=== PATIENT | male | born 1975 | race Caucasian/White ===

== ENCOUNTER 2016-04-17 17:09 | Emergency (ER) | payer MEDICAID ==
[~2016-04-17] VITALS: Ht 175.3 cm; Wt 170.0 kg
[~2016-04-17 17:09] MED LIST: CLON1 PO; DEPA250T2 PO; DEPA500T PO; ESCI10TA PO; GABA100C4 PO; GLIM1 PO; MELO15 PO; METF500 PO; PRIN20TA2 PO; PROP1TAB66 PO; TRAM50TA PO
[2016-04-17 17:10] VITALS: BP 151/91; PULSE 98; RESP 20; TEMP 97.9; O2SAT 95
[2016-04-17] MEDS ORDERED: LISI-515 PO (19:59)
--- NOTE | 2016-04-17 20:02 | PD ---
HPI Chief Complaint: Medication Refill Request Time Seen by Provider: 19:59 Travel History International Travel<30 days: No Contact w/Intl Traveler<30days: No Traveled to known affect area: No History of Present Illness HPI 41-year-old white male presents to emergency department requesting a medication refill of his lisinopril 20 mg daily. He states that he was just excepted as a patient into the patient assistance clinic. The patient states that he does not have his first appointment with Dr. Mcbride until the end of the month. He just ran out his medicine today. He denies any active medical complaints at this time. PFS Past Medical History ADD: Yes ADHD: Yes Arthritis: Yes (KNEES LOWER BACK) Autoimmune Disease: No Bipolar Disorder: Yes Anxiety: Yes Depression: Yes Cancer: No Cardiovascular Problems: Yes High Cholesterol: Yes Diabetes: Yes Diminished Hearing: No Endocrine: Yes Genitourinary: No Hypertension: Yes Immune Disorder: No Musculoskeletal: Yes Neurologic: Yes (IN COMA SEVERAL WEEKS AGE 17 ) Psychiatric: Yes Reproductive: No Respiratory: No Past Surgical History Abdominal Surgery: No Genitourinary Surgery: Yes (VASECTOMY 2001) Hysterectomy: Yes (HTN) Oral Surgery: Yes (WISDOM TEETH EXTRACTED) Other Surgery: Yes (HERNIA SMALL CHILD) Social History Alcohol Use: No Tobacco Use: No Substance Use: No Allergies-Medications (Allergen,Severity, Reaction): Coded Allergies: Adderall (Verified Allergy, Severe, Rash, 06/14/15) Lamotrigine (Verified Allergy, Mild, RASH, 06/14/15) Reported Meds & Prescriptions Reported Meds & Active Scripts Active Inderal (Propranolol HCl) 10 Mg Tab 10 Mg PO TID 30 Days Glucophage 500 mg (Metformin HCl) 500 Mg Tab 500 Mg PO BIDPC 30 Days Amaryl (Glimepiride) 1 Mg Tab 1 Mg PO DAILYAC 30 Days Reported Depakote 500 mg (Divalproex Sodium) 500 Mg Tab 1 Tab PO DAILY Depakote 250 mg (Divalproex Sodium) 250 Mg Tab 1 Tab PO BID Prinivil (Lisinopril) 20 Mg Tab 20 Mg PO DAILY Escitalopram Oxalate 10 Mg Tab 10 Mg PO DAILY Gabapentin Unknown Strength Cap Unknown Dose PO TID Klonopin (Clonazepam) 1 Mg Tab 1 Mg PO TID Mobic 15 Mg Tab (Meloxicam) 15 Mg Tab 15 Mg PO DAILY PRN Tramadol Hcl (Tramadol HCl) 50 Mg Tab 50 Mg PO TID PRN Review of Systems Except as stated in HPI: all other systems reviewed are Neg Physical Exam Narrative GENERAL: This is a morbidly obese, well-developed patient, in no apparent distress. SKIN: No rashes, ecchymoses or lesions. Warm and dry. HEAD: Atraumatic. Normocephalic. EYES: PERRL, EOMI, no discharge or injection. No scleral icterus. EARS: Clear NOSE: Nasal turbinates appear normal. THROAT: Mucosa pink and moist. Airway patent. NECK: Trachea midline. supple, moves head freely. LUNGS: Clear to auscultation. CV: Regular in rhythm. ABDOMEN: Soft nontender. EXT: No clubbing cyanosis or edema. Data Data Last Documented VS Vital Signs Date Time Temp Pulse Resp B/P Pulse Ox O2 Delivery O2 Flow Rate FiO2 04/17/16 17:10 97.9 98 20 151/91 95 Room Air MDM Medical Decision Making Medical Screen Exam Complete: Yes Emergency Medical Condition: Yes Medical Record Reviewed: Yes Differential Diagnosis Differential diagnoses: Hypertension, medication refill, drug-seeking Narrative Course This is hypertension, med refill Diagnosis Primary Impression: Hypertension Qualified Code: I10 - Essential hypertension Additional Impression: Medication refill Patient Instructions: General Instructions Additional Instructions: Rest. Follow-up with Dr. Mcbride in the clinic as scheduled. Return to the ER for emergencies Med/Other Pt SpecificInfo: Prescription(s) given Scripts Lisinopril 20 Mg Tab20 Mg PO DAILY #30 TAB Ref 0 Prov:Nuzhat Saxena MD 04/17/16 Disposition: 01 DISCHARGE HOME Condition: Stable Larry Casper Apr 17, 2016 20:02
[2016-05-02] MEDS ORDERED: QUET1TAB9 PO (15:20)
[2016-05-02] MEDS ORDERED: PROP10TA6 PO (15:20)
[2016-05-02] MEDS ORDERED: CLON1TAB PO (15:20)
[2016-05-02] MEDS ORDERED: METF500T PO ×2 (15:20→15:47)
[2016-05-02] MEDS ORDERED: GABA600T PO (15:20)
[2016-05-02] MEDS ORDERED: LISI-515 PO (15:47)
[2016-05-07] MEDS ORDERED: GLIP10TA6 PO (16:37)
[2016-05-07] MEDS ORDERED: GEMF600T PO (16:37)
[2016-05-10] MEDS ORDERED: METF500T PO (15:59)
[2016-05-10] MEDS ORDERED: LEVEMIR SQ (15:59)
[2016-05-10] MEDS ORDERED: BAYEMIS (15:59)
[2016-05-10] MEDS ORDERED: INSU-174 (15:59)
[2016-05-10] MEDS ORDERED: GLUCTES27 (15:59)
[2016-05-10] MEDS ORDERED: HYDR25TA5 PO (16:01)
[2016-05-21] MEDS ORDERED: METF500T PO (15:35)
[2016-05-21] MEDS ORDERED: ONETTES4 (15:43)
[2016-05-21] MEDS ORDERED: ONETKIT (15:43)
[2016-05-21] MEDS ORDERED: ONETMIS2 (15:43)
[2016-05-21] MEDS ORDERED: HYDR25TA5 PO ×2 (15:45→17:09)
[2016-05-31] MEDS ORDERED: GLIP10TA6 PO (16:26)
[2016-05-31] MEDS ORDERED: GEMF600T PO (16:27)
[2016-06-11] MEDS ORDERED: METF500T PO (11:24)
[2016-06-25] MEDS ORDERED: PROP10TA6 PO (15:57)
[2016-06-25] MEDS ORDERED: LEVEMIR SQ (15:57)
[2016-06-25] MEDS ORDERED: HYDR50TA94 PO (15:58)
[2016-06-26] MEDS ORDERED: INSU-174 (16:10)
[2016-07-02] MEDS ORDERED: GLIP10TA6 PO (07:45)
[2016-07-02] MEDS ORDERED: GEMF600T PO (07:45)
[2016-07-30] MEDS ORDERED: PARO10TA2 PO (15:16)
[2016-07-30] MEDS ORDERED: LEVEMIR SQ (15:30)
== END 2016-04-17 20:46 | disposition home or self-care (01) ==
LOC: NEPB 17:09
DX: I10 Essential (primary) hypertension (principal); E11.9 Type 2 diabetes mellitus without complications; E78.00 Pure hypercholesterolemia, unspecified; Z76.0 Encounter for issue of repeat prescription; Z79.84 Long term (current) use of oral hypoglycemic drugs; Z86.59 Personal history of other mental and behavioral disorders; Z87.39 Personal history of other diseases of the musculoskeletal system and connective tissue; Z86.79 Personal history of other diseases of the circulatory system; Z86.69 Personal history of other diseases of the nervous system and sense organs
CPT/HCPCS: 99281

== ENCOUNTER 2017-10-21 08:21 | Observation (INO) ==
[2017-10-21] MEDS ORDERED: Aspirin 325 MG Tablet PO ONE (09:28)
--- NOTE | 2017-10-21 10:04 | XR ---
EXAM DATE: 10/21/2017 9:56 AM EDT AGE/SEX: 42 years / Male INDICATIONS: Left chest pain and short of breath. CLINICAL DATA: This is the patient's initial encounter. Patient reports that signs and symptoms have been present for 1 week and indicates a pain score of 6/10. MEDICAL/SURGICAL HISTORY: None. None. COMPARISON: [facility] [place], 09/07/[place]. . FINDINGS: A single AP view of the chest demonstrates minimal linear density left lower lobe. Right lung clear. The cardiomediastinal contours are unremarkable. Osseous structures are intact. CONCLUSION: 1. Left basilar density could be subsegmental atelectasis or scarring. 2. Right lung is clear. Electronically signed by: Solis Newman MD 10/21/2017 10:03 AM EDT
[2017-10-21 10:34] LABS: Baso # (Auto) 0.2 th/mm3 (0.0-0.2); Baso % (Auto) 1.3 % (0.0-2.0); Eos # (Auto) 0.5 th/mm3 (0.0-0.4); Eos % (Auto) 3.3 % (0.0-4.0); Hematocrit 35.7 % (39.0-51.0); Lymph # (Auto) 4.1 th/mm3 (1.0-4.8); Lymph % (Auto) 29.8 % (9.0-44.0); Mean Corpuscular HGB Conc 33.7 % (32.0-36.0); Mean Corpuscular Hemoglobin 26.7 pg (27.0-34.0); Mean Corpuscular Volume 79.3 fL (80.0-100.0); Mean Platelet Volume 7.2 fL (7.0-11.0); Mono # (Auto) 0.8 th/mm3 (0.0-0.9); Mono % (Auto) 5.7 % (0.0-8.0); Neut # (Auto) 8.2 th/mm3 (1.8-7.7); Neut % (Auto) 59.9 % (16.0-70.0); Platelet Count 389 th/mm3 (150-450); Red Blood Count 4.51 mil/mm3 (4.50-5.90); Red Cell Distribution Width 13.9 % (11.6-17.2); White Blood Count 13.7 th/mm3 (4.0-11.0)
[2017-10-21 10:46] LABS: Activated Partial Thrombo Time 27.7 sec (24.3-30.1); Prothrombin Time 10.4 sec (9.8-11.6)
[2017-10-21 10:56] LABS: Albumin 3.4 g/dL (3.4-5.0); Anion Gap 13 meq/L (5-15); Aspartate Aminotransferase 10 U/L (15-37); Blood Urea Nitrogen 21 mg/dL (7-18); Calcium 8.9 mg/dL (8.5-10.1); Carbon Dioxide 24.4 meq/L (21.0-32.0); Chloride 104 meq/L (98-107); Glomerular Filtration Rate Greater Than 89 mL/min (>89); Glucose,Random 269 mg/dL (74-106); Potassium 4.1 meq/L (3.5-5.1); Sodium 141 meq/L (136-145)
[2017-10-21 11:01] LABS: Alanine Aminotransferase 35 U/L (12-78); Alkaline Phosphatase 152 U/L (45-117); Total Protein 7.6 g/dL (6.4-8.2)
[2017-10-21 11:02] LABS: Creatine Kinase 38 U/L (39-308)
--- NOTE | 2017-10-21 11:37 | CT ---
EXAM DATE: 10/21/2017 11:31 AM EDT AGE/SEX: 42 years / Male INDICATIONS: Left chest pain for 1 week CLINICAL DATA: This is the patient's initial encounter. Patient reports that signs and symptoms have been present for 1 week and indicates a pain score of 6/10. MEDICAL/SURGICAL HISTORY: Diabetes. Hypertension. Anxiety, panic attacks None. RADIATION DOSE: 11.01 CTDI (mGy) COMPARISON: No prior exams available for comparison. TECHNIQUE: Volumetric scanning was performed using a multi-row detector CT scanner during bolus infu bud of 75 ml Omnipaque 350 (iohexol) nonionic water-soluble contrast as a single exam dose. The keny a was post processed with a variety of visualization algorithms including full volume maximum intensi ty projection and sliding thin slab reformation. Using automated exposure control and adjustment of t he mA and/or kV according to patient size, radiation dose was kept as low as reasonably achievable to obtain optimal diagnostic quality images. DICOM format image data is available electronically for r eview and comparison. FINDINGS: Pulmonary Arteries: There is some limited opacification of the pulmonary vessels. However, no filling defects are seen in the main pulmonary arteries.. The left and right pulmonary arteries are normal in diameter. Lung: No infiltrates seen. Effusion: None. Mediastinum: No evidence of mediastinal or hilar adenopathy. Other: The axilla is unremarkable. CONCLUSION: 1. Limited opacification of the pulmonary arteries. However, no definite filling defects are seen in the main pulmonary arteries. 2. No acute pulmonary infiltrates. Electronically signed by: Rogelio Gamez MD 10/21/2017 11:35 AM EDT
--- NOTE | 2017-10-21 12:29 | ED ---
HPI General Chief Complaint: Chest Pain Stated Complaint: Chest Pains Time Seen by Provider: 10/21/17 08:56 Source: patient Mode of arrival: ambulatory Limitations: no limitations History of Present Illness HPI narrative: Patient is a 42-year-old male with history of anxiety, bipolar disorder, and diabetes, presents to the emergency room with complaints of chest pain. Patient reports that he has been having intermittent chest pain for the past few days. Patient reports that chest pain comes on at rest while he is sitting at his computer. Reports shortness of breath along with nausea and no vomiting with this chest pain. Patient denies any diaphoresis with the symptoms. Patient reports that the chest pain feels like a "bad headache in my chest" as well as a "dull ache" as well as a "sharp and stabbing sensation". Patient reports the chest pain does radiate from his left chest and his left arm. Reports that he has been noticing increased dyspnea on exertion which is new for him. 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 No early family history of CAD - does report history of "alot of CVA's in the past." Patient currently with no chest pain at this time. Complete Quality Measures for STEMI Alert Patients Related Data Home Medications Medication Instructions Recorded Confirmed gabapentin 200 mg PO TID 10/21/17 10/21/17 insulin aspart U-100 [Novolog See Label Instructions .ROUTE 10/21/17 Flexpen U-100 Insulin] .COMPLEX insulin detemir U-100 [Levemir 65 unit SUB-Q HS 10/21/17 10/21/17 FlexTouch U-100 Insuln] insulin detemir U-100 [Levemir 70 unit SUB-Q DAILY 10/21/17 10/21/17 FlexTouch U-100 Insuln] lisinopril 20 mg PO DAILY 10/21/17 10/21/17 metformin 1,000 mg PO BID 10/21/17 10/21/17 quetiapine [Seroquel] 100 mg PO BID 10/21/17 10/21/17 quetiapine [Seroquel] 200 mg PO HS 10/21/17 10/21/17 Allergies Allergy/AdvReac Type Severity Reaction Status Date / Time amphetamine Allergy Severe Rash Unverified 10/21/17 08:52 dextroamphetamine Allergy Severe Rash Unverified 10/21/17 08:52 lamotrigine Allergy Mild RASH Verified 10/21/17 08:52 Review of Systems ROS: all other systems reviewed are negative [facility] Medical History Medical History Anxiety (Acute) Bipolar 1 disorder (Acute) Diabetes (Acute) H/O tooth extraction (Acute) Hypertension (Acute) Neuropathy (Acute) Panic attacks (Acute) Social History Social History Substance History: No History of Abuse Smoking Status: Former smoker How Often Do You Have a Drink Containing Alcohol: Never Immunization History Tetanus Immunization: Unsure Exam Narrative Exam Narrative: GENERAL: mild distress SKIN: Focused skin assessment warm/dry. HEAD: Atraumatic. Normocephalic. EYES: Pupils equal and round. No scleral icterus. No injection or drainage. ENT: No nasal bleeding or discharge. Mucous membranes pink and moist. NECK: Trachea midline. No JVD. CARDIOVASCULAR: Regular rate and rhythm. No murmur appreciated. RESPIRATORY: No accessory muscle use. Clear to auscultation. Breath sounds equal bilaterally. GASTROINTESTINAL: Abdomen soft, non-tender, nondistended. Hepatic and splenic margins not palpable. MUSCULOSKELETAL: No obvious deformities. No clubbing. No cyanosis. No edema. NEUROLOGICAL: Awake and alert. No obvious cranial nerve deficits. Motor grossly within normal limits. Normal speech. PSYCHIATRIC: Appropriate mood and affect; insight and judgment normal. Course Initial Documented Vital Signs Temperature 97.7 F 10/21/17 08:27 Pulse Rate 95 H 10/21/17 08:27 Respiratory Rate 20 10/21/17 08:27 Blood Pressure 152/90 H 10/21/17 08:27 Pulse Oximetry 94 L 10/21/17 08:27 Last Documented Vital Signs Temperature 97.7 F 10/21/17 08:27 Pulse Rate 87 10/21/17 09:40 Respiratory Rate 16 10/21/17 09:40 Blood Pressure 151/67 H 10/21/17 09:40 Pulse Oximetry 97 10/21/17 09:40 Medical Decision Making MDM Narrative Medical decision making narrative: During the course of the patients emergency department visit, the patients history, examination, and differential diagnosis were reviewed with the patient. The patient was placed on a nuclear monitoring technician with oximetry and frequent blood pressure monitoring. The patient had an IV access obtained and blood work sent for analysis. The patient was initially provided ASA 325mg. He currently is chest pain free The patients laboratory studies were reviewed and remarkable for trop less than 0.02. His blood sugar is 269 - SQ insulin was ordered for him. he is a known diabetic. CTA neg for PE Patient will be admitted to chest pain unit for serial trops and for cardiac obs Medical Screen Exam Complete: Yes Emergency Medical Condition: Yes Differential Diagnosis Differential Diagnosis: ACS, arrhythmia, PE, DVT, pneumothorax, pneumonia Medical Records Medical records reviewed: Yes I reviewed the patient's medical records. Lab Data Lab results reviewed: Yes I reviewed the patient's lab results. Result diagrams: 10/21/17 09:45 10/21/17 09:45 Lab Results 10/21/17 10/21/17 10/21/17 Range/Units 09:45 09:45 09:45 WBC 13.7 H (4.0-11.0) th/mm3 RBC 4.51 (4.50-5.90) mil/mm3 Hgb 12.0 L (13.0-17.0) gm/dL Hct 35.7 L (39.0-51.0) % MCV 79.3 L (80.0-100.0) fL MCH 26.7 L (27.0-34.0) pg MCHC 33.7 (32.0-36.0) % RDW 13.9 (11.6-17.2) % Plt Count 389 (150-450) th/mm3 MPV 7.2 (7.0-11.0) fL Neut % (Auto) 59.9 (16.0-70.0) % Lymph % (Auto) 29.8 (9.0-44.0) % [place] % (Auto) 5.7 (0.0-8.0) % Eos % (Auto) 3.3 (0.0-4.0) % Baso % (Auto) 1.3 (0.0-2.0) % Neut # (Auto) 8.2 H (1.8-7.7) th/mm3 Lymph # (Auto) 4.1 (1.0-4.8) th/mm3 [place] # (Auto) 0.8 (0.0-0.9) th/mm3 Eos # (Auto) 0.5 H (0.0-0.4) th/mm3 Baso # (Auto) 0.2 (0.0-0.2) th/mm3 WBC Differential . Differential Comment Auto diff final PT 10.4 (9.8-11.6) sec INR 1.0 Ratio APTT 27.7 (24.3-30.1) sec Sodium 141 (136-145) meq/L Potassium 4.1 (3.5-5.1) meq/L Chloride 104 (98-107) meq/L Carbon Dioxide 24.4 (21.0-32.0) meq/L Anion Gap 13 (5-15) meq/L BUN 21 H (7-18) mg/dL Creatinine 0.93 (0.60-1.30) mg/dL Estimated GFR Greater than 89 (>89) mL/min Random Glucose 269 H (74-106) mg/dL Calcium 8.9 (8.5-10.1) mg/dL Total Bilirubin 0.2 (0.2-1.0) mg/dL AST 10 L (15-37) U/L ALT 35 (12-78) U/L Alkaline Phosphatase 152 H (45-117) U/L Total Creatine Kinase 38 L (39-308) U/L Troponin I Less than 0.02 L (0.02-0.05) ng/mL B-Natriuretic Peptide (0-100) pg/mL Total Protein 7.6 (6.4-8.2) g/dL Albumin 3.4 (3.4-5.0) g/dL 10/21/17 Range/Units 09:45 WBC (4.0-11.0) th/mm3 RBC (4.50-5.90) mil/mm3 Hgb (13.0-17.0) gm/dL Hct (39.0-51.0) % MCV (80.0-100.0) fL MCH (27.0-34.0) pg MCHC (32.0-36.0) % RDW (11.6-17.2) % Plt Count (150-450) th/mm3 MPV (7.0-11.0) fL Neut % (Auto) (16.0-70.0) % Lymph % (Auto) (9.0-44.0) % [place] % (Auto) (0.0-8.0) % Eos % (Auto) (0.0-4.0) % Baso % (Auto) (0.0-2.0) % Neut # (Auto) (1.8-7.7) th/mm3 Lymph # (Auto) (1.0-4.8) th/mm3 [place] # (Auto) (0.0-0.9) th/mm3 Eos # (Auto) (0.0-0.4) th/mm3 Baso # (Auto) (0.0-0.2) th/mm3 WBC Differential Differential Comment PT (9.8-11.6) sec INR Ratio APTT (24.3-30.1) sec Sodium (136-145) meq/L Potassium (3.5-5.1) meq/L Chloride (98-107) meq/L Carbon Dioxide (21.0-32.0) meq/L Anion Gap (5-15) meq/L BUN (7-18) mg/dL Creatinine (0.60-1.30) mg/dL Estimated GFR (>89) mL/min Random Glucose (74-106) mg/dL Calcium (8.5-10.1) mg/dL Total Bilirubin (0.2-1.0) mg/dL AST (15-37) U/L ALT (12-78) U/L Alkaline Phosphatase (45-117) U/L Total Creatine Kinase (39-308) U/L Troponin I (0.02-0.05) ng/mL B-Natriuretic Peptide 14 (0-100) pg/mL Total Protein (6.4-8.2) g/dL Albumin (3.4-5.0) g/dL Imaging Data Attestation: I personally reviewed and interpreted this imaging study as follows : Radiologist's impression: Chest X-Ray 10/21/17 08:58 CONCLUSION: 1. Left basilar density could be subsegmental atelectasis or scarring. 2. Right lung is clear. Chest CTA 10/21/17 09:28 CONCLUSION: 1. Limited opacification of the pulmonary arteries. However, no definite filling defects are seen in the main pulmonary arteries. 2. No acute pulmonary infiltrates. ECG Data EKG Prior to Arrival: No Attestation: I personally reviewed and interpreted this ECG as follows: Interpretation: EKG at 0849: NSR at 89bpm, qt/qtc: 351/398, no acute st or t wave changes Discharge Plan Discharge Disposition Patient Disposition: 30 Still Patient Discharge Condition Condition: Stable Discharge Details Diagnosis: Chest pain Physicians Team ED Provider: Alma Dawkins Primary Care Provider: UNKNOWN, Rxs /Orders / Referrals /Forms Prescriptions: No Action metformin 1,000 mg Tablet 1,000 mg PO BID RF: 0 insulin detemir U-100 [Levemir FlexTouch U-100 Insuln] 100 unit/mL (3 mL) Insulin Pen 70 unit SUB-Q DAILY RF: 0 insulin detemir U-100 [Levemir FlexTouch U-100 Insuln] 100 unit/mL (3 mL) Insulin Pen 65 unit SUB-Q HS RF: 0 lisinopril 20 mg Tablet 20 mg PO DAILY RF: 0 quetiapine [Seroquel] 200 mg Tablet 200 mg PO HS RF: 0 quetiapine [Seroquel] 100 mg Tablet 100 mg PO BID RF: 0 insulin aspart U-100 [Novolog Flexpen U-100 Insulin] 100 unit/mL Insulin Pen See Label Instructions .ROUTE .COMPLEX RF: 0 gabapentin 100 mg Capsule 200 mg PO TID RF: 0 Discharge Instructions Patient Printed Instructions: Chest Pain (ED) Discharge Interventions Interventions: Vital Signs Last Done: 10/21/17 09:40 Status ED Status: With Doctor
[2017-10-21] MEDS ORDERED: Acetaminophen 500 MG Tablet PO PRN (12:58)
--- NOTE | 2017-10-21 13:20 | P.HPCA ---
History of Present Illness [facility] Chief Complaint: Chest pain History of Present Illness: 42 year old male with history of type II diabetes, hypertension, and hyperlipidemia emergency room for further evaluation of nonexertional chest pain. Onset 1 week. Location left anterior chest. Radiation to left arm. Characterizes shooting sharp pain, describes as "waves of pain." Duration 2-3 hours. Associated symptoms include dyspnea and diaphoresis. Denies nausea and vomiting. No precipitating or relieving factors. Denies similar pain in the past. Also complaints of exertional dyspnea x2 weeks, not accompanied with chest pain. Both chest pain and dyspnea reported to be increased in intensity and frequency. No recent illness, fever, cough or injury. Past cardiac testing None Social history No known former smoker, quit 16 years ago. 10 pack year history. Denies any alcohol or illegal drug use. Currently unemployed, filing for disability. Endorses sedentary lifestyle. Family history Noncontributory for early onset cardiovascular disease. - Diagnosis (1) Chest pain of uncertain etiology (2) History of type 2 diabetes mellitus (3) History of hypertension (4) Morbid obesity with BMI of 50.0-59.9, adult (5) Anemia Review of Systems All other systems reviewed negative except as stated in HPI PMFSH - History History Provided By: Patient - Medical History Medical History: Medical History (Last Updated 10/21/17 @ 14:25 by ALEE Arriaga) Anxiety Bipolar 1 disorder H/O tooth extraction Hyperlipidemia Hypertension Morbid obesity with BMI of 50.0-59.9, adult Neuropathy Panic attacks Type 2 diabetes mellitus - Family History Family History: Family History (Last Updated 10/21/17 @ 14:25 by ALEE Arriaga) Mother Borderline diabetes Grandparent CVA (cerebral vascular accident) - Tobacco History Second Hand Smoke Exposure: No Tobacco Use In Past 30 Days: No Smoking Status: Former smoker Years Smoked: 10 Number of Pack Years (if former smoker): 10 - Alcohol History How Often Do You Have a Drink Containing Alcohol: Never - Substance Use History Substance History: No History of Abuse - Travel History History of Recent Travel: No Recent Travel in the [place] Within the Last 8 Weeks: No Recent Travel Out of the Country Within the Last 8 Weeks: No - Immunization History Tetanus Immunization: Unsure Medications and Allergies Active Medications: Active Medications Acetaminophen (Tylenol) 500 mg PO Q4H PRN PRN Reason: HEADACHE Nitroglycerin (Nitrostat Sl) 0.4 mg SL Q5M PRN PRN Reason: CHEST PAIN Sodium Chloride (Ns Flush) 2 ml IV.FLUSH UNSCH PRN PRN Reason: FLUSH AFTER USING IV ACCESS Sodium Chloride (Ns Flush) 2 ml IV.FLUSH BID CAITLIN Allergies Allergy/AdvReac Type Severity Reaction Status Date / Time amphetamine Allergy Severe Rash Unverified 10/21/17 08:52 dextroamphetamine Allergy Severe Rash Unverified 10/21/17 08:52 lamotrigine Allergy Mild RASH Verified 10/21/17 08:52 Home Medications Medication Instructions Recorded Confirmed Type gabapentin 200 mg PO TID 10/21/17 10/21/17 History insulin aspart U-100 [Novolog See Label Instructions .ROUTE 10/21/17 History Flexpen U-100 Insulin] .COMPLEX insulin detemir U-100 [Levemir 65 unit SUB-Q HS 10/21/17 10/21/17 History FlexTouch U-100 Insuln] insulin detemir U-100 [Levemir 70 unit SUB-Q DAILY 10/21/17 10/21/17 History FlexTouch U-100 Insuln] lisinopril 20 mg PO DAILY 10/21/17 10/21/17 History metformin 1,000 mg PO BID 10/21/17 10/21/17 History quetiapine [Seroquel] 100 mg PO BID 10/21/17 10/21/17 History quetiapine [Seroquel] 200 mg PO HS 10/21/17 10/21/17 History Exam Vital signs: Vital Signs 10/21/17 08:27 10/21/17 09:02 10/21/17 09:05 Temperature 97.7 F Pulse Rate 95 H Respiratory Rate 20 Blood Pressure 152/90 H Pulse Oximetry 94 L 97 97 10/21/17 09:40 Temperature Pulse Rate 87 Respiratory Rate 16 Blood Pressure 151/67 H Pulse Oximetry 97 Intake & Output 10/20/17 10/21/17 10/21/17 18:59 06:59 18:59 Weight 176.901 kg Narrative: GENERAL: Alert WN, WD, NAD, pleasant, morbidly obese male HEAD: NC, AT EYES: Sclera clear, conjunctiva without injection, pupils equal and round ENT: Mucous membranes pink and moist CV: RRR, without murmur, rub, gallop. RESP: Diminished lungs throughout bilateral, no crackles, wheeze, rhonchi, symmetrical chest rise, nonlabored, able to speak in full sentences ABD: Soft, NT, ND, no masses, positive bowel tones EXT: Pulses +2x4, +1 pitting bilateral lower extremities edema MS: Normal tone x4 extremities, nontender, no obvious deformities, full range of motion NEURO: CN II through CN XII grossly intact, motor strength 5/5 PSYCH: A+O x3, pleasant affect, appropriate speech, mood, insight and judgment SKIN: Normal turgor, normal texture, no lesions, no rashes, brisk cap refill, even hair distribution, multiple tattooed Results 10/21/17 09:45 10/21/17 09:45 Cardiac Enzymes 10/21/17 10/21/17 Range/Units 09:45 09:45 AST 10 L (15-37) U/L Troponin I Less than 0.02 L (0.02-0.05) ng/mL B-Natriuretic Peptide 14 (0-100) pg/mL Coagulation 10/21/17 10/21/17 Range/Units 09:45 09:45 PT 10.4 (9.8-11.6) sec APTT 27.7 (24.3-30.1) sec B-Natriuretic Peptide 14 (0-100) pg/mL CBC 10/21/17 Range/Units 09:45 WBC 13.7 H (4.0-11.0) th/mm3 RBC 4.51 (4.50-5.90) mil/mm3 Hgb 12.0 L (13.0-17.0) gm/dL Hct 35.7 L (39.0-51.0) % Plt Count 389 (150-450) th/mm3 Neut # (Auto) 8.2 H (1.8-7.7) th/mm3 Lymph # (Auto) 4.1 (1.0-4.8) th/mm3 [place] # (Auto) 0.8 (0.0-0.9) th/mm3 Eos # (Auto) 0.5 H (0.0-0.4) th/mm3 Baso # (Auto) 0.2 (0.0-0.2) th/mm3 Comprehensive Metabolic Panel 10/21/17 Range/Units 09:45 Sodium 141 (136-145) meq/L Potassium 4.1 (3.5-5.1) meq/L Chloride 104 (98-107) meq/L Carbon Dioxide 24.4 (21.0-32.0) meq/L BUN 21 H (7-18) mg/dL Creatinine 0.93 (0.60-1.30) mg/dL Calcium 8.9 (8.5-10.1) mg/dL AST 10 L (15-37) U/L ALT 35 (12-78) U/L Alkaline Phosphatase 152 H (45-117) U/L Total Protein 7.6 (6.4-8.2) g/dL Albumin 3.4 (3.4-5.0) g/dL Intake and Output 10/20/17 10/21/17 10/21/17 22:59 06:59 14:59 Other: Weight 176.901 kg Patient Weight 10/22/17 06:59 Weight 176.901 kg EKG interpretations - EKG EKG results cardiology: sinus rhythm, normal axis, normal QRS, normal ST/T Caprini VTE Risk Assessment Caprini VTE Risk Assessment: No/Low Risk (score <= 1) Caprini Risk Assessment Model: Point Value = 1 Point Value = 2 Point Value = 3 Point Value = 5 Age 41-60 Minor surgery BMI > 25 kg/m2 Swollen legs Varicose veins or History of unexplained or recurrent spontaneous Oral contraceptives or hormone replacement Sepsis (< 1 month) Serious lung disease, including pneumonia (< 1 month) Abnormal pulmonary function Acute myocardial infarction Congestive heart failure (< 1 month) History of inflammatory bowel disease Medical patient at bed rest Age 61-74 Arthroscopic surgery Major open surgery (> 45 min) Laparoscopic surgery (> 45 min) Malignancy Confined to bed (> 72 hours) Immobilizing plaster cast Central venous access Age >= 75 History of VTE Family history of VTE Factor V Leiden Prothrombin [id number] Lupus anticoagulant Anticardiolipin antibodies Elevated serum homocysteine Heparin-induced thrombocytopenia Other congenital or acquired thrombophilia Stroke (< 1 month) Elective arthroplasty Hip, pelvis, or leg fracture Acute spinal cord injury (< 1 month) Prophylaxis Regimen: Total Risk Factor Score Risk Level Prophylaxis Regimen 0-1 Low Early ambulation 2 Moderate Order ONE of the following: *Sequential Compression Device (SCD) *Heparin 5000 units SQ BID 3-4 Higher Order ONE of the following medications: *Heparin 5000 units SQ TID *Enoxaparin/Lovenox 40 mg SQ daily (WT < 150 kg, CrCl > 30 mL/min) *Enoxaparin/Lovenox 30 mg SQ daily (WT < 150 kg, CrCl > 10-29 mL/min) *Enoxaparin/Lovenox 30 mg SQ BID (WT < 150 kg, CrCl > 30 mL/min) AND/OR *Sequential Compression Device (SCD) 5 or more Highest Order ONE of the following medications: *Heparin 5000 units SQ TID (Preferred with Epidurals) *Enoxaparin/Lovenox 40 mg SQ daily (WT < 150 kg, CrCl > 30 mL/min) *Enoxaparin/Lovenox 30 mg SQ daily (WT < 150 kg, CrCl > 10-29 mL/min) *Enoxaparin/Lovenox 30 mg SQ BID (WT < 150 kg, CrCl > 30 mL/min) AND *Sequential Compression Device (SCD) Assessment and Plan - Assessment (1) Chest pain of uncertain etiology Code(s): R07.89 - Other chest pain Status: Acute Plan: Admitted chest pain center. Continue ruling out with ACS protocol. Will be seen evaluated by Dr. Tanna Leonardo. Possible exercise stress test later this afternoon or early a.m. Verbalized understanding and agreeable plan of care. (2) History of type 2 diabetes mellitus Code(s): Z86.39 - Personal history of other endocrine, nutritional and metabolic disease Status: Chronic Plan: Hold home insulin and oral anti-glycemic's at this time. SSI moderate dose coverage. Discussed dietary modifications in length. Time for questions and answers provided. (3) History of hypertension Code(s): Z86.79 - Personal history of other diseases of the circulatory system Status: Chronic Plan: Continue lisinopril. Discussed following a low-sodium diet, weight loss, and increasing daily activity. (4) Morbid obesity with BMI of 50.0-59.9, adult Code(s): E66.01 - Morbid (severe) obesity due to excess calories; Z68.43 - Body mass index (BMI) 50-59.9 , adult Status: Chronic Plan: Discussed in length variety of dietary modifications in length. (5) Anemia Code(s): D64.9 - Anemia, unspecified Status: Acute Plan: Reviewed past H/H results, history of anemia at different times as far as 2007. Endorses history of GIB. No black or bloody stools. Instructed to follow up with his primary care provider, which is new to him, to discuss H/H levels and past GIB. Verbalized understanding. (5) Anemia Qualifiers: Anemia type: unspecified type Qualified Code(s): D64.9 - Anemia, unspecified
[2017-10-21 16:21] LABS: Creatine Kinase 37 U/L (39-308)
[2017-10-21] MEDS: Gabapentin 100 MG Capsule PO SCH (19:14)
--- NOTE | 2017-10-22 07:53 | P.PNCA ---
Subjective Interval history: No complaints overnight. No further chest pain. Slept well. Physical Exam Vital signs: Vital Signs 10/21/17 08:27 10/21/17 09:02 10/21/17 09:05 Temperature 97.7 F Pulse Rate 95 H Respiratory Rate 20 Blood Pressure 152/90 H Pulse Oximetry 94 L 97 97 10/21/17 09:40 10/21/17 13:28 10/21/17 16:00 Temperature 97.8 F 97.9 F Pulse Rate 87 84 81 Respiratory Rate 16 18 18 Blood Pressure 151/67 H 139/67 128/71 Pulse Oximetry 97 95 94 L 10/21/17 20:00 10/21/17 23:51 10/22/17 03:56 Temperature 98.3 F 98.7 F 97.8 F Pulse Rate 79 85 80 Respiratory Rate 20 22 22 Blood Pressure 124/76 130/58 L 136/71 Pulse Oximetry 93 L 94 L 98 10/22/17 07:26 Temperature 97.7 F Pulse Rate 83 Respiratory Rate 16 Blood Pressure 129/73 Pulse Oximetry 94 L Intake & Output 10/21/17 10/22/17 10/22/17 18:59 06:59 18:59 Output Total 450 / 450 Balance -450 / -450 Weight 176.901 kg Output: Urine 450 / 450 Other: # Voids 1 Weight On Admission 176.901 kg Narrative: Morbidly obese male in no acute distress. Regular rate and rhythm. Lungs sounds diminished throughout due to body habitus. Assessment and Plan - Assessment (1) Chest pain of uncertain etiology Code(s): R07.89 - Other chest pain Status: Acute Plan: Monitored on telemetry overnight. Discussed with Dr. Olguin exercise stress test completed yesterday target of 78% with no reproducible chest pain or ST segment changes. Dr. Olguin reviewed stress test. No further cardiac testing required, discharge home with follow-up with primary care provider. Patient agreeable to plan of care. Discussed with RN. (2) History of type 2 diabetes mellitus Code(s): Z86.39 - Personal history of other endocrine, nutritional and metabolic disease Status: Chronic Plan: Hold home insulin and oral anti-glycemic's at this time. SSI moderate dose coverage. (3) History of hypertension Code(s): Z86.79 - Personal history of other diseases of the circulatory system Status: Chronic Plan: Continue lisinopril. Discussed following a low-sodium diet, weight loss, and increasing daily activity. (4) Morbid obesity with BMI of 50.0-59.9, adult Code(s): E66.01 - Morbid (severe) obesity due to excess calories; Z68.43 - Body mass index (BMI) 50-59.9 , adult Status: Chronic Plan: Discussed in length variety of dietary modifications in length. (5) Anemia Code(s): D64.9 - Anemia, unspecified Status: Acute Plan: Reviewed past H/H results, history of anemia at different times as far as 2007. Endorses history of GIB. No black or bloody stools. Instructed to follow up with his primary care provider, which is new to him, to discuss H/H levels and past GIB. Verbalized understanding. (5) Anemia Qualifiers: Anemia type: unspecified type Qualified Code(s): D64.9 - Anemia, unspecified
[2017-10-22] MEDS: Gabapentin 100 MG Capsule PO SCH (08:43)
[2017-10-22] MEDS ORDERED: Lisinopril 20 MG Tablet PO SCH (09:00)
[2017-10-22] MEDS ORDERED: QUEtiapine 100 MG Tablet PO SCH (09:00)
--- NOTE | 2017-10-22 12:54 | ECG ---
Date Performed: 10/21/2017 Time Performed: 16:07:58 PTAGE: 42 years EKG: Sinus rhythm NORMAL ECG PREVIOUS TRACING : 10/21/2017 13.33 Since previous tracing, no significant change noted DOCTOR: Chapo Olguin Interpretating Date/Time 10/22/2017 12:53:12
--- NOTE | 2017-10-22 12:57 | ECG ---
Date Performed: 10/21/2017 Time Performed: 13:33:50 PTAGE: 42 years EKG: Sinus rhythm NORMAL ECG PREVIOUS TRACING : 10/21/2017 08.49 Since previous tracing, no significant change noted DOCTOR: Chapo Olguin Interpretating Date/Time 10/22/2017 12:54:49
--- NOTE | 2017-10-22 12:57 | ECG ---
Date Performed: 10/21/2017 Time Performed: 08:49:37 PTAGE: 42 years EKG: Sinus rhythm NORMAL ECG INTERPRETATION BASED ON A DEFAULT AGE OF 41 YEARS PREVIOUS TRACING : 11/24/2008 09.49 Since previous tracing, no significant change noted DOCTOR: Chapo Olguin Interpretating Date/Time 10/22/2017 12:54:59
--- NOTE | 2017-10-22 12:57 | TR ---
Date Performed: 10/21/2017 Time Performed: 17:10:24 DOCTOR: Chapo Olguin DRUG LIST: CLINICAL HISTORY: CHEST PAIN REASON FOR TEST: Chest pain REASON FOR ENDING: OBSERVATION: CONCLUSION: Benedicto protocol completed. Stopped sec to leg fatigue. Maximum TU=105 % Max HR Achiev ed=78.0% Resting FE=715/82 Total Exercise Time=3:55. No reprod chest discomfort. No ectopy. Fair exe rcise tolerance. Recovery quick and unremarkable. Suboptimal test. COMMENTS: Patient exercised using the Benedicto protocol. No electrocardiographic changes were seen to suggest ischemia. Hemodynamic response to exercise was normal. No significant arrhythmia was prese nt.
== END 2017-10-22 10:43 | disposition home or self-care (01) ==
LOC: NEDA 08:21 → NEPE 08:21 → NEPFCDU 13:10
PROVIDERS: ADMIT Internal Medicine Interventional Cardiology; ATTEND Internal Medicine Interventional Cardiology